=== PATIENT | male | born 1945 | race Caucasian/White ===

== ENCOUNTER 2018-10-08 16:03 | Emergency (ER) | payer BC, MEDICARE ==
[~2018-10-08] VITALS: Ht 175.3 cm; Wt 74.8 kg
[2018-10-08] MEDS ORDERED: ATENOLOL 50MG T50 M1 PO (16:17)
[2018-10-08] MEDS ORDERED: HYDROCHLOROTHIA25 M2 PO (16:17)
[2018-10-08] MEDS ORDERED: NABUMETONE 750750 M1 PO (17:25)
[2018-10-08 17:53] VITALS: BP 144/59
== END 2018-10-08 17:53 | disposition home or self-care (01) ==
LOC: M.ERS 16:03
DX: M25.511 Pain in right shoulder (principal)